=== PATIENT | male | born 1990 | race Caucasian/White ===

== ENCOUNTER 2017-11-25 15:29 | Emergency (ER) | payer MEDICAID ==
[2017-11-25 15:33] VITALS: BP 127/80
--- NOTE | 2017-11-25 16:08 | ED Physician Documentation ---
PD HPI SKIN - Stated complaint Stated Complaint: LUMP ON LT SIDE NECK & RT FINGER - Chief complaint Chief Complaint: Wound - History obtained from History obtained from: Patient - History of Present Illness Timing - onset: How many days ago (3) Timing - duration: Days (3) Timing - details: Gradual onset, Still present Location: Neck, RUE Quality / character: Itchy, Discolored, Raised Associated symptoms: No: Fever Similar symptoms before: Diagnosis (abscess) Recently seen: Not recently seen - Additional information Additional information: 27-year-old male has developed a small pimple on the side of his neck that has increased in size and is mildly painful. He also has a tiny area over the right middle finger that he feels is infected with a bacteria. He states that he has had something similar to this previously and he let it go and it involved his entire forearm. He has not had fever and he has not been otherwise ill. Review of Systems Constitutional: denies: Fever Eyes: denies: Decreased vision Ears: denies: Ear pain Nose: denies: Congestion Throat: denies: Sore throat Cardiac: denies: Chest pain / pressure, Palpitations Respiratory: denies: Dyspnea, Cough GI: denies: Nausea, Vomiting : denies: Dysuria, Frequency Skin: reports: Lesions Musculoskeletal: reports: Extremity pain. denies: Neck pain, Back pain PD PAST MEDICAL HISTORY - Past Medical History Past Medical History: Yes Psych: Bipolar disorder - Past Surgical History Past Surgical History: No - Present Medications Home Medications: Ambulatory Orders Medication Instructions Recorded Confirmed Sulfamethoxazole/Trimethoprim 1 each PO BID #14 tablet 11/25/17 [Sulfamethoxazole-Tmp Ds Tablet] - Allergies Allergies/Adverse Reactions: Allergies Allergy/AdvReac Type Severity Reaction Status Date / Time amoxicillin [Amoxicillin] Allergy Intermediate Hives Verified 11/25/17 15:33 - Social History Does the pt smoke?: Yes Smoking Status: Current every day smoker Does the pt drink ETOH?: Yes Does the pt have substance abuse?: Yes - Immunizations Immunizations are current?: Yes - POLST Patient has POLST: No PD ED PE NORMAL - Vitals Vital signs reviewed: Yes (normal ) - General General: Alert and oriented X 3, No acute distress, Well developed/nourished - HEENT HEENT: Atraumatic, PERRL, EOMI - Neck Neck: Supple, no meningeal sign, No bony TTP, Other (To the left neck there is a 5mm round raised pimple without underlying mass or fluctunace. ) - Respiratory Respiratory: No respiratory distress - Back Back: No CVA TTP, No spinal TTP - Derm Derm: Normal color, Warm and dry, No rash - Extremities Extremities: No deformity, No edema, Other (over the tip of the right middle finger is a tiny area about 4mm in size that is without inflamation or tenderness. 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) - Neuro Neuro: Alert and oriented X 3, No motor deficit, No sensory deficit, Normal speech Eye Opening: Spontaneous Motor: Obeys Commands Verbal: Oriented GCS Score: 15 - Psych Psych: Normal mood, Normal affect Results - Vitals Vitals: Vital Signs - 24 hr 11/25/17 15:31 Temperature 36.1 C L Heart Rate 79 Respiratory 16 Rate Blood Pressure 127/80 O2 Saturation 97 Oxygen O2 Source Room air PD MEDICAL DECISION MAKING - ED course Complexity details: considered differential, d/w patient ED course: 27-year-old male with an early staph infection on his neck and complaints of a infection in his fingertip appears to have a early staph infection in his neck. I am not certain what to make of the issue with his finger. It does seem like there may be some delusional parasitosis. - Sepsis Event Vital Signs: Vital Signs - 24 hr 11/25/17 15:31 Temperature 36.1 C L Heart Rate 79 Respiratory 16 Rate Blood Pressure 127/80 O2 Saturation 97 Oxygen O2 Source Room air Departure - Departure Disposition: 01 Home, Self Care Clinical Impression: Staph skin infection Condition: Stable Instructions: ED Staph Infec Abx Tx Only Follow-Up: [facility] [Provider Group] Prescriptions: Sulfamethoxazole/Trimethoprim [Sulfamethoxazole-Tmp Ds Tablet] 1 each PO BID # 14 tablet
== END 2017-11-25 16:15 | disposition home or self-care (01) ==
LOC: ED 15:29
DX: L08.89 Other specified local infections of the skin and subcutaneous tissue (principal); B95.8 Unspecified staphylococcus as the cause of diseases classified elsewhere; F17.200 Nicotine dependence, unspecified, uncomplicated
CPT/HCPCS: 99281; 99283

== ENCOUNTER 2019-09-18 16:33 | Emergency (ER) | payer MEDICAID ==
--- NOTE | 2019-09-18 17:13 | ED Physician Documentation ---
PD HPI ABD PAIN - Stated complaint Stated Complaint: ABD PAIN - Chief complaint Chief Complaint: Abd Pain - History obtained from History obtained from: Patient - History of Present Illness Timing - onset: How many months ago (10) Location: Periumbilical Worsened by: Other (bearing down, heavy lifting) Associated symptoms: No: Fever, Nausea, Vomiting, Hematemesis, Melena, Hematuria, Chest pain, Near syncope / syncope, Loss of appetite, Weight loss Recently seen: Not recently seen - Additional information Additional information: 29-year-old male presents to the emergency department with chief complaint of worsening periumbilical pain and swelling. Patient reports that about 1 year ago he not noticed a little lump in the umbilical area. He has not thought much about it but over the course of the summer as he works out more or lifts heavy objects he finds that the pain will increase in the umbilical area. Sometimes he has a mild area of swelling there. Patient has no previous past surgical history. He denies any fevers no hematuria no testicular pain no vomiting no melena or hematochezia.Pain does not radiate. Review of Systems Constitutional: denies: Fever, Chills Respiratory: denies: Dyspnea, Cough GI: reports: Abdominal Pain. denies: Abdominal Swelling, Nausea, Vomiting, Constipation, Diarrhea, Hematemesis, Bloody / black stool, Reviewed and negative : denies: Dysuria, Testicular pain, Testicular mass Skin: denies: Rash, Lesions Musculoskeletal: denies: Neck pain, Back pain PD PAST MEDICAL HISTORY - Past Medical History Past Medical History: No Psych: Bipolar disorder - Past Surgical History Past Surgical History: No - Present Medications Home Medications: Ambulatory Orders Medication Instructions Recorded Confirmed Sulfamethoxazole/Trimethoprim 1 each PO BID #14 tablet 11/25/17 [Sulfamethoxazole-Tmp Ds Tablet] - Allergies Allergies/Adverse Reactions: Allergies Allergy/AdvReac Type Severity Reaction Status Date / Time amoxicillin [Amoxicillin] Allergy Intermediate Hives Verified 09/18/19 16:45 - Social History Does the pt smoke?: Yes Smoking Status: Current every day smoker Does the pt drink ETOH?: Yes Does the pt have substance abuse?: Yes - Immunizations Immunizations are current?: Yes - POLST Patient has POLST: No PD ED PE EXPANDED - General General: No acute distress, Well developed/nourished. No: Anxious, In Pain - Cardiac Cardiac: Regular Rate - Respiratory Respiratory: Clear to ausultation ramon - Abdomen Abdomen: Normal Bowel sounds, Other (small reducible < 0.5 cm umbilican hernia palpated with bearing down) - Back Back: Normal exam - Derm Derm: Normal color, Warm and dry. No: Rash Results - Vitals Vitals: Vital Signs - 24 hr 09/18/19 09/18/19 16:41 16:45 Temperature 36.9 C Heart Rate 64 65 Respiratory 14 16 Rate Blood Pressure 148/59 H 145/65 H O2 Saturation 98 100 Oxygen O2 Source Room air - Rads (name of study) abd ultrasound Radiology: Final report received (2 small fat-containing umbilical hernias without signs of incarceration or strangulation) PD MEDICAL DECISION MAKING - ED course Complexity details: reviewed results, d/w patient ED course: 29-year-old male presented to the emergency department with chief complaint of increasing periumbilical pain. Over the last few months he has noticed an area of swelling when bearing down or lifting heavy weights. Limited abdominal ultrasound shows 2 fat-containing umbilical hernias without signs of strangulation or incarceration. Patient will be referred to [facility] surgery for follow-up. Emergent return precautions for concerns of increasing pain fevers or strangulation discussed. Departure - Departure Disposition: 01 Home, Self Care Clinical Impression: Umbilical hernia Qualifiers: Obstruction and gangrene presence: without obstruction or gangrene Qualified Code(s): K42.9 - Umbilical hernia without obstruction or gangrene Condition: Stable Record reviewed to determine appropriate education?: Yes Instructions: Hernia Surg Umbilical Repair Ch Follow-Up: Kleber Head MD [Provider Admit Priv/Credential] - Comments: Jarek you have a small fat-containing umbilical hernia. There is no intestine in the hernia. In the long-term follow-up with the surgeon is advised. Please schedule an appointment as soon as you are able. If you develop increasing pain swelling redness or have bloody stools or fevers return to the emergency department for reevaluation.
--- NOTE | 2019-09-18 19:59 | Ultrasound Report ---
Reason: eval for umbilical hernia Procedure Date: 09/18/2019 Accession Number: [id number] / [id number] Procedure: US - Abdomen Limited CPT Code: Final Report FULL RESULT: PROCEDURE: Abdomen Limited INDICATIONS: eval for umbilical hernia TECHNIQUE: Real-time focused scanning was performed of the abdomen, with image documentation. COMPARISON: None FINDINGS: There is a superior periumbilical hernia extending through a peritoneal defect measuring only approximately 4-5 mm in maximal thickness. This is a fat-containing herniation measuring 2.5 x 0.7 x 1.4 cm and at the umbilicus itself there also is a 1.7 x 0.7 x 1.7 cm fat-containing hernia. IMPRESSION: 2 fat containing hernias are present at the periumbilical soft tissues including one at the umbilicus itself and the other immediately superior. By this examination and bowel incarceration or strangulation is not seen. Reviewed by: Jose Pagan MD on 09/18/2019 7:58 PM PDT Approved by: Jose Pagan MD on 09/18/2019 7:58 PM PDT Station ID: [id number]
[2019-09-18 20:28] VITALS: BP 135/65
== END 2019-09-18 20:28 | disposition home or self-care (01) ==
LOC: ED 16:33
DX: K42.9 Umbilical hernia without obstruction or gangrene (principal); F17.200 Nicotine dependence, unspecified, uncomplicated
CPT/HCPCS: 76705; 99284

== ENCOUNTER 2019-12-03 11:50 | Outpatient (CLI) | payer MEDICAID ==
[2019-12-04 10:22] LABS: HIV AG/AB 4TH GEN NON-REACTIVE (NON-REACTIVE)
[2019-12-04 14:51] LABS: HEPATITIS C ANTIBODY REACTIVE (NON-REACTIVE)
[2019-12-05 18:56] LABS: HCV RNA QNT <1.18 NOT DETECTED Log IU/mL (NOT DETECTED); HCV RNA QUANT RT PCR <15 NOT DETECTED IU/mL (NOT DETECTED)
== END 2019-12-03 23:59 | disposition home or self-care (01) ==
LOC: LAB.WCP 11:50
PROVIDERS: ATTEND Nurse Practitioner Family
DX: Z11.3 Encounter for screening for infections with a predominantly sexual mode of transmission (principal)
CPT/HCPCS: 36415; 81599; 86592; 86803; 87389; 87491; 87591; 87661

== ENCOUNTER 2019-12-11 16:17 | Emergency (ER) | payer MEDICAID ==
[2019-12-11 16:28] VITALS: BP 129/82
--- NOTE | 2019-12-11 16:29 | ED Physician Documentation ---
History of Present Illness - Stated complaint Stated Complaint: ARMPIT LUMP - Chief complaint Chief Complaint: General - History obtained from History obtained from: Patient - Additonal information Additional information: There is a small lesion he noticed in his left armpit today. It is painless. Review of Systems Constitutional: reports: Reviewed and negative Eyes: reports: Reviewed and negative Ears: reports: Reviewed and negative PD PAST MEDICAL HISTORY - Past Medical History Psych: Bipolar disorder - Past Surgical History Past Surgical History: No - Present Medications Home Medications: Ambulatory Orders Medication Instructions Recorded Confirmed Sulfamethoxazole/Trimethoprim 1 each PO BID #14 tablet 11/25/17 [Sulfamethoxazole-Tmp Ds Tablet] - Allergies Allergies/Adverse Reactions: Allergies Allergy/AdvReac Type Severity Reaction Status Date / Time amoxicillin [Amoxicillin] Allergy Intermediate Hives Verified 09/18/19 16:45 - Social History Does the pt smoke?: Yes Smoking Status: Current every day smoker Does the pt drink ETOH?: Yes Does the pt have substance abuse?: Yes - Immunizations Immunizations are current?: Yes - POLST Patient has POLST: No PD ED PE NORMAL - Vitals Vital signs reviewed: Yes - General General: Alert and oriented X 3 - Derm Derm: Other (He has a skin tag measuring less than a millimeter in his left axilla which is the source of his worry. He was reassured.) - Neuro Neuro: Alert and oriented X 3, Normal speech Results - Vitals Vitals: Vital Signs - 24 hr 12/11/19 16:22 Temperature 36.0 C L Heart Rate 89 Respiratory 16 Rate Blood Pressure 129/82 H O2 Saturation 969 H Oxygen O2 Source Room air Departure - Departure Disposition: 01 Home, Self Care Clinical Impression: Cutaneous skin tags Condition: Good Record reviewed to determine appropriate education?: Yes Comments: What she have there is called a skin tag. Completely benign and you can safely ignore it. If it is really bothering you you can talk to your doctor about snipping it off.
== END 2019-12-11 16:33 | disposition home or self-care (01) ==
LOC: ED 16:17
DX: L91.8 Other hypertrophic disorders of the skin (principal); F17.200 Nicotine dependence, unspecified, uncomplicated
CPT/HCPCS: 99281

== ENCOUNTER 2020-01-23 14:05 | Emergency (ER) | payer MEDICAID ==
[2020-01-23 14:11] VITALS: BP 140/91
[2020-01-23] MEDS ORDERED: SODIUM CHLORIDE 0.9% 1,000 ML IV STA (14:24)
--- NOTE | 2020-01-23 14:37 | ED Physician Documentation ---
History of Present Illness - Stated complaint Stated Complaint: ABD PX, NAUSEA - Chief complaint Chief Complaint: Abd Pain - Additonal information Additional information: 30-year-old male presents to the emergency department for evaluation of lower abdominal pain. He reports that when he woke up this morning he had a generalized dull ache in his lower pelvic area. Since this a.m. the pain has been pretty constant. He reports that he has been nauseated and has vomited once. He does have a history of fat-containing periumbilical hernias. He has been seen by surgery for this but is delayed scheduling surgery due to work commitments. However he reports that this pain is distinctly different than the pain he has had with the periumbilical hernias. He denies dysuria but states that his urine is cloudy. He denies penile discharge, testicular pain or swelling. He denies diarrhea or any pertinent past surgical history. Occasionally smokes tobacco but denies cannabis. he is a social drinker. he has a hx of psoriasis; unmedicated. Pt takes no rx medications Review of Systems Constitutional: denies: Fever, Chills Eyes: reports: Reviewed and negative Nose: reports: Reviewed and negative Throat: reports: Reviewed and negative Cardiac: reports: Reviewed and negative Respiratory: reports: Reviewed and negative GI: reports: Abdominal Pain, Nausea, Vomiting. denies: Constipation, Diarrhea, Hematemesis, Bloody / black stool : denies: Dysuria, Frequency, Hesitancy, Discharge, Testicular pain, Testicular mass Skin: reports: Reviewed and negative Musculoskeletal: reports: Reviewed and negative Neurologic: reports: Reviewed and negative PD PAST MEDICAL HISTORY - Past Medical History Cardiovascular: None Respiratory: None Neuro: None Endocrine/Autoimmune: None GI: None : None HEENT: None Psych: Bipolar disorder Musculoskeletal: None Derm: None - Past Surgical History Past Surgical History: No - Present Medications Home Medications: Ambulatory Orders Medication Instructions Recorded Confirmed Sulfamethoxazole/Trimethoprim 1 each PO BID #14 tablet 11/25/17 [Sulfamethoxazole-Tmp Ds Tablet] - Allergies Allergies/Adverse Reactions: Allergies Allergy/AdvReac Type Severity Reaction Status Date / Time amoxicillin [Amoxicillin] Allergy Intermediate Hives Verified 01/23/20 14:11 - Social History Does the pt smoke?: Yes Smoking Status: Current every day smoker Does the pt drink ETOH?: Yes Does the pt have substance abuse?: Yes - Immunizations Immunizations are current?: Yes - POLST Patient has POLST: No PD ED PE EXPANDED - General General: Alert, Anxious - Neck Neck: Supple w/out meningeal sx. No: Adenopathy - Cardiac Cardiac: Regular Rate, Regular Rhythm, Radial strong equal, Cap refill < 2 sec - Respiratory Respiratory: Clear to ausultation ramon. No: Distress, Labored - Abdomen Abdomen: Normal Bowel sounds, Tender to palpation, LLQ (Mild tenderness left lower quadrant of abdomen without rebound or guarding. Negative psoas and McBurney's.). No: Rebound, Guarding, Periumbilical (No periumbilical pain elicited. Unable to palpate to the previously documented umbilical hernias) - Derm Derm: Normal color, Warm and dry, Rash (psoriatic rash on elbows, knees) - Extremities Extremities: Normal - Neuro Neuro: Alert and Oriented X 3, CNII-XII intact - GCS Eye Opening: Spontaneous Motor: Obeys Commands Verbal: Oriented Total: 15 Results - Vitals Vitals: Vital Signs - 24 hr 01/23/20 14:08 Temperature 36.3 C L Heart Rate 60 Respiratory 17 Rate Blood Pressure 140/91 H O2 Saturation 99 Oxygen O2 Source Room air - Labs Labs: Laboratory Tests 01/23/20 01/23/20 01/23/20 14:33 14:42 14:42 WBC 9.8 RBC 5.39 Hgb 16.3 Hct 47.2 MCV 87.6 MCH 30.2 MCHC 34.5 RDW 12.0 Plt Count 292 MPV 9.7 Neut # (Auto) 7.4 H Lymph # (Auto) 1.4 L [place] # (Auto) 0.8 Eos # (Auto) 0.1 Baso # (Auto) 0.0 Absolute Nucleated RBC 0.00 Nucleated RBC % 0.0 Sodium 137 Potassium 3.9 Chloride 102 Carbon Dioxide 27 Anion Gap 8.0 BUN 14 Creatinine 0.8 Estimated GFR (MDRD) 114 Glucose 105 H Calcium 9.2 Total Bilirubin 1.1 H AST 23 ALT 24 Alkaline Phosphatase 46 Total Protein 6.9 Albumin 4.2 Globulin 2.7 Albumin/Globulin Ratio 1.6 Lipase 30 Urine Color YELLOW Urine Clarity CLEAR Urine pH 8.5 H Ur Specific [place] 1.020 Urine Protein NEGATIVE Urine Glucose (UA) NEGATIVE Urine Ketones NEGATIVE Urine Occult Blood NEGATIVE Urine Nitrite NEGATIVE Urine Bilirubin NEGATIVE Urine Urobilinogen 0.2 (NORMAL) Ur Leukocyte Esterase NEGATIVE Ur Microscopic Review NOT INDICATED Urine Culture Comments NOT INDICATED - Rads (name of study) CT abd Radiology: Final report received (No acute findings to explain abdominal pain) PD MEDICAL DECISION MAKING - ED course Complexity details: reviewed old records, reviewed results, re-evaluated patient, considered differential, d/w patient ED course: 30-year-old male presents to the emergency department for evaluation of acute onset left lower quadrant abdominal pain. His lab work is essentially unremarkable without leukocytosis. Though he reported cloudy urine his urine showed no signs of infection. CT scan of the abdomen did not reveal any acute abnormality specifically no appendicitis. Patient was reevaluated and found to be free of abdominal pain. He was requesting a soda and something to drink. Patient will be discharged home advised to slowly advance his diet. Return precautions discussed Departure - Departure Disposition: 01 Home, Self Care Clinical Impression: Abdominal pain Qualifiers: Abdominal location: left lower quadrant Qualified Code(s): R10.32 - Left lower quadrant pain Condition: Stable Record reviewed to determine appropriate education?: Yes Instructions: Abdominal Pain Comments: Jarek the CT scan of your abdomen was essentially normal. Your labs today in the emergency department are also normal. Recommend that you go home drink sips of clear fluids and slowly advance your diet if you begin to feel better. If you develop a fever of suddenly severe abdominal pain you are unable to keep food or liquid down for 48 hours or more than please return to the emergency department
[2020-01-23 14:41] LABS: BILIRUBIN,URINE NEGATIVE (NEGATIVE); GLUCOSE, URINE (UA) NEGATIVE (NEGATIVE); KETONES,URINE (UA) NEGATIVE (NEGATIVE); LEUKOCYTE ESTERASE, URINE NEGATIVE (NEGATIVE); NITRITE,URINE NEGATIVE (NEGATIVE); OCCULT BLOOD,URINE NEGATIVE (NEGATIVE); PH,URINE 8.5 PH (5.0-7.5); PROTEIN,URINE NEGATIVE (NEGATIVE); UROBILINOGEN,URINE 0.2 (NORMAL) E.U./dL (NORMAL)
[2020-01-23 14:43] LABS: CLARITY,URINE CLEAR (CLEAR)
[2020-01-23 14:55] LABS: BASOPHILS % (AUTO) 0.4 %; EOSINOPHILS # (AUTO) 0.1 10^3/uL (0.0-0.7); EOSINOPHILS % (AUTO) 1.3 %; HGB - HEMOGLOBIN 16.3 g/dL (14.0-18.0); LYMPHOCYTES # (AUTO) 1.4 10^3/uL (1.5-3.5); LYMPHOCYTES % (AUTO) 14.6 %; MEAN CORPUSCULAR HEMOGLOBIN 30.2 pg (27.0-31.0); MEAN CORPUSCULAR HGB CONC 34.5 g/dL (32.0-36.0); MEAN CORPUSCULAR VOLUME 87.6 fL (80.0-94.0); MEAN PLATELET VOLUME 9.7 fL (7.4-11.4); MONOCYTES # (AUTO) 0.8 10^3/uL (0.0-1.0); MONOCYTES % (AUTO) 7.8 %; NEUTROPHILS # (AUTO) 7.4 10^3/uL (1.5-6.6); NEUTROPHILS % (AUTO) 75.5 %; PLT - PLATELET COUNT 292 10^3/uL (130-450); RED BLOOD COUNT 5.39 10^6/uL (4.70-6.10); WHITE BLOOD COUNT 9.8 x10^3/uL (4.8-10.8)
[2020-01-23] MEDS ORDERED: IOVERSOL 320 100 ML VIAL IVP ONE ×2 (15:04→17:08)
[2020-01-23 15:15] LABS: ALBUMIN 4.2 g/dL (3.2-5.5); ALBUMIN/GLOBULIN RATIO 1.6 (1.0-2.2); BILIRUBIN,TOTAL 1.1 mg/dL (0.2-1.0); CALCIUM 9.2 mg/dL (8.5-10.3); CREATININE 0.8 mg/dL (0.6-1.2); TOTAL PROTEIN 6.9 g/dL (6.7-8.2)
--- NOTE | 2020-01-23 15:53 | CT Report ---
PROCEDURE: Abdomen/Pelvis W INDICATIONS: RLQ Abdominal pain, appendicitis suspected CONTRAST: IV CONTRAST: Optiray 320 ml: 100 PO CONTRAST: *NO PO CONTRAST TECHNIQUE: After the administration of weight appropriate dose of intravenous contrast contrast, 5 mm thick sect ions acquired from the diaphragms to the symphysis. 5 mm thick coronal and sagittal reformats were a cquired. For radiation dose reduction, the following was used: automated exposure control, adjustme nt of mA and/or kV according to patient size. COMPARISON: None. FINDINGS: Image quality: Excellent. ABDOMEN: Lung bases: Lung bases are clear. Heart size is normal. Solid organs: Liver and spleen are normal in size and enhancement. Gallbladder is unremarkable. Bi liary system is non dilated. Pancreas enhances normally. No adrenal nodules. Kidneys demonstrate n ormal size and enhancement, without hydronephrosis. Peritoneum and bowel: Bowel loops demonstrate normal wall thickness and caliber. No free fluid or a ir. Visualized air-filled appendix is normal in appearance. Nodes and vessels: No retroperitoneal or mesenteric adenopathy by size criteria. Aorta and inferior vena cava are normal in size. Miscellaneous: No ventral hernias. PELVIS: Genitourinary: Bladder wall thickness is normal. Miscellaneous: No inguinal hernias or adenopathy. Bones: No suspicious bony lesions. No vertebral body compression fractures. IMPRESSION: CT abdomen and pelvis without acute abnormalities. Specifically, normal appearing appendix. Reviewed by: Toño Park MD on 01/23/2020 3:52 PM PDT Approved by: Toño Park MD on 01/23/2020 3:52 PM PDT Station ID: [id number]
== END 2020-01-23 16:34 | disposition home or self-care (01) ==
LOC: ED 14:05
DX: R10.32 Left lower quadrant pain (principal); Z72.0 Tobacco use; Z87.19 Personal history of other diseases of the digestive system
CPT/HCPCS: 36415; 74177; 80053; 81003; 83690; 85025; 96360; 96361; 99282; 99284; Q9967; 81001; 87086

== ENCOUNTER 2020-04-24 09:42 | Outpatient (CLI) | payer MEDICAID ==
[2020-04-28 13:12] LABS: HSV 1 IGG TYPE SPECIFIC AB <0.90 index
== END 2020-04-24 23:59 | disposition home or self-care (01) ==
LOC: LAB.WCP 09:42
PROVIDERS: ATTEND Nurse Practitioner Family
DX: Z11.3 Encounter for screening for infections with a predominantly sexual mode of transmission (principal)
CPT/HCPCS: 36415; 81599; 86695; 86696

== ENCOUNTER 2020-07-26 08:48 | Emergency (ER) | payer MEDICAID ==
[2020-07-26 10:41] LABS: B. PARAPERTUSSIS- RESP PCR PAN NOT DETECTED; B. PERTUSSIS- RESP PCR PANEL NOT DETECTED; C. PNEUMONIAE- RESP PCR PANEL NOT DETECTED; CORONAVIRUS 229E-RESP PCR NOT DETECTED; CORONAVIRUS HKU1-RESP PCR NOT DETECTED; CORONAVIRUS NL63-RESP PCR NOT DETECTED; CORONAVIRUS OC43-RESP PCR NOT DETECTED; HUMAN METAPNEUMOVIRUS NOT DETECTED; INFLUENZA A- RESP PCR PANEL NOT DETECTED; INFLUENZA B - RESP PCR PANEL NOT DETECTED; M. PNEUMONIAE- RESP PCR PANEL NOT DETECTED; PARAINFLUENZA VIRUS 1 NOT DETECTED; PARAINFLUENZA VIRUS 2 NOT DETECTED; PARAINFLUENZA VIRUS 3 NOT DETECTED; PARAINFLUENZA VIRUS 4 NOT DETECTED; RHINOVIRUS/ENTEROVIRUS NOT DETECTED; RSV- RESP PCR PANEL NOT DETECTED; SARS-CoV-2 -RESP PCR PANEL NOT DETECTED
--- NOTE | 2020-07-26 10:52 | ED Physician Documentation ---
PD HPI URI - Stated complaint Stated Complaint: SOA/DIZZINESS - Chief complaint Chief Complaint: Resp - History obtained from History obtained from: Patient - History of Present Illness Timing - onset: How many days ago (3) Timing duration: Days (3) Timing details: Gradual onset, Still present Associated symptoms: Sore throat, Dry cough Contributing factors: Sick contact (Exposed to a friend who he suspects had Covid.) Improves by: Rest Similar symptoms before: Has not had sx before Recently seen: Not recently seen - Additional information Additional information: Previously well 30-year-old male has developed some symptoms of achiness that have come and gone and he has a dry cough. He has been exposed to a friend who he thinks may have had Covid. The patient has become unduly concerned and is wanting to be tested. He has not had his shot. Review of Systems Constitutional: reports: Myalgias, Fatigue. denies: Fever Eyes: denies: Decreased vision Ears: denies: Ear pain Nose: reports: Congestion. denies: Rhinorrhea / runny nose Throat: reports: Sore throat Cardiac: denies: Chest pain / pressure, Palpitations Respiratory: reports: Cough. denies: Dyspnea, Wheezing GI: denies: Abdominal Pain, Nausea, Vomiting : denies: Dysuria, Frequency PD PAST MEDICAL HISTORY - Past Medical History Cardiovascular: None Respiratory: None Neuro: None Endocrine/Autoimmune: None GI: None : None HEENT: None Psych: Bipolar disorder Musculoskeletal: None Derm: None - Past Surgical History Past Surgical History: No - Present Medications Home Medications: Ambulatory Orders Medication Instructions Recorded Confirmed No Known Home Medications 07/26/20 07/26/20 - Allergies Allergies/Adverse Reactions: Allergies Allergy/AdvReac Type Severity Reaction Status Date / Time amoxicillin [Amoxicillin] Allergy Intermediate Hives Verified 01/23/20 14:11 - Social History Does the pt smoke?: Yes Smoking Status: Current every day smoker Does the pt drink ETOH?: Yes Does the pt have substance abuse?: Yes - Immunizations Immunizations are current?: Yes - POLST Patient has POLST: No PD ED PE NORMAL - Vitals Vital signs reviewed: Yes (hypertensive mild) - General General: Alert and oriented X 3, No acute distress, Well developed/nourished - HEENT HEENT: Atraumatic, PERRL, EOMI, Ears normal, Moist mucous membranes, Pharynx benign, Dentition benign - Neck Neck: Supple, no meningeal sign, No bony TTP - Cardiac Cardiac: RRR, No murmur - Respiratory Respiratory: No respiratory distress, Clear bilaterally - Abdomen Abdomen: Soft, Non tender - Back Back: No CVA TTP, No spinal TTP - Derm Derm: Normal color, Warm and dry, No rash - Extremities Extremities: No deformity, No edema - Neuro Neuro: Alert and oriented X 3, manager product management 2-12 intact, No motor deficit, No sensory deficit, Normal speech Eye Opening: Spontaneous Motor: Obeys Commands Verbal: Oriented GCS Score: 15 - Psych Psych: Normal mood, Normal affect Results - Vitals Vitals: Vital Signs - 24 hr 07/26/20 08:54 Temperature 36.6 C Heart Rate 70 Respiratory 18 Rate Blood Pressure 127/84 H O2 Saturation 97 Oxygen O2 Source Room air - Labs Labs: Laboratory Tests 07/26/20 09:35 Nasal Adenovirus (PCR) NOT DETECTED Nasal B. parapertussis DNA (PCR) NOT DETECTED Nasal Coronavir 229E PCR NOT DETECTED Nasal Coronavir HKU1 PCR NOT DETECTED Nasal Coronavir NL63 PCR NOT DETECTED Nasal Coronavir OC43 PCR NOT DETECTED Nasal Enterovir/Rhinovir PCR NOT DETECTED Nasal Influenza B PCR NOT DETECTED Nasal Influenza A PCR NOT DETECTED Nasal Parainfluen 1 PCR NOT DETECTED Nasal Parainfluen 2 PCR NOT DETECTED Nasal Parainfluen 3 PCR NOT DETECTED Nasal Parainfluen 4 PCR NOT DETECTED Nasal RSV (PCR) NOT DETECTED Nasal B.pertussis DNA PCR NOT DETECTED Nasal C.pneumoniae (PCR) NOT DETECTED Cooper Human Metapneumo PCR NOT DETECTED Nasal M.pneumoniae (PCR) NOT DETECTED Nasal SARS-CoV-2 (PCR) NOT DETECTED PD MEDICAL DECISION MAKING - ED course Complexity details: reviewed results, re-evaluated patient, considered differential, d/w patient ED course: Previously well 30-year-old male has become concerned about the possibility of Covid and he presents to the emergency department today with a dry cough and aches. His rapid Covid is negative. Prior to my seeing the patient my assumption was that he had been exposed to Covid and by more detailed history his friend had pneumonia and the patient was suspecting Covid is a possibility. Departure - Departure Disposition: 01 Home, Self Care Clinical Impression: URI (upper respiratory infection) Qualifiers: URI type: unspecified URI Qualified Code(s): J06.9 - Acute upper respiratory infection, unspecified Condition: Stable Instructions: ED Viral Syndrome Follow-Up: [facility] [Provider Group]
[2020-07-26 11:01] VITALS: BP 142/90
== END 2020-07-26 10:59 | disposition home or self-care (01) ==
LOC: ED 08:48
DX: J06.9 Acute upper respiratory infection, unspecified (principal); Z20.822 Contact with and (suspected) exposure to COVID-19; F17.200 Nicotine dependence, unspecified, uncomplicated
CPT/HCPCS: 0202U; 99283

== ENCOUNTER 2020-08-16 23:03 | Emergency (ER) | payer MEDICAID ==
[2020-08-16 23:16] VITALS: BP 131/77
--- NOTE | 2020-08-17 00:38 | ED Physician Documentation ---
History of Present Illness - Stated complaint Stated Complaint: MALE - Chief complaint Chief Complaint: General - History obtained from History obtained from: Patient - Additonal information Additional information: Patient comes emergency department for chief complaint of "lump in right groin". Patient states he is noticed a "hard ball" under the skin of his right inguinal area, and is not sure if it is a lymph node or something else. He states he has a history of genital herpes, though he has never had an actual outbreak. He has noticed 2 small red bumps near the right base of his penis. No fevers or chills. No urethral discharge. No dysuria. No other complaints at this time. Review of Systems Ten Systems: 10 systems reviewed and negative Constitutional: reports: Reviewed and negative Eyes: reports: Reviewed and negative Ears: reports: Reviewed and negative Nose: reports: Reviewed and negative Throat: reports: Reviewed and negative Cardiac: reports: Reviewed and negative Respiratory: reports: Reviewed and negative GI: reports: Reviewed and negative : reports: Other (Genital lesions.) Skin: reports: Reviewed and negative Musculoskeletal: reports: Reviewed and negative Neurologic: reports: Reviewed and negative Psychiatric: reports: Reviewed and negative Endocrine: reports: Reviewed and negative Immunocompromised: reports: Reviewed and negative PD PAST MEDICAL HISTORY - Past Medical History Past Medical History: Yes Cardiovascular: None Respiratory: None Neuro: None Endocrine/Autoimmune: None GI: None : None HEENT: None Psych: Bipolar disorder Musculoskeletal: None Derm: None - Past Surgical History Past Surgical History: No - Present Medications Home Medications: Ambulatory Orders Medication Instructions Recorded Confirmed No Known Home Medications 07/26/20 08/16/20 - Allergies Allergies/Adverse Reactions: Allergies Allergy/AdvReac Type Severity Reaction Status Date / Time amoxicillin [Amoxicillin] Allergy Intermediate Hives Verified 08/16/20 23:15 - Social History Does the pt smoke?: Yes Smoking Status: Current every day smoker Does the pt drink ETOH?: Yes Does the pt have substance abuse?: Yes - Immunizations Immunizations are current?: Yes - POLST Patient has POLST: No PD ED PE NORMAL - Vitals Vital signs reviewed: Yes - General General: Alert and oriented X 3, No acute distress - HEENT HEENT: Atraumatic, PERRL, EOMI, Moist mucous membranes - Neck Neck: Supple, no meningeal sign - Respiratory Respiratory: No respiratory distress - Male Male : Other (Normal male genitalia. 2 small papules noted at the base of penis on right. Appear to be associated with hair follicle. No apical erosion or drainage. No vesicles. Shotty lymph node is palpable in the inguinal area on right.) - Derm Derm: Normal color, Warm and dry, No rash - Extremities Extremities: No deformity - Neuro Neuro: Alert and oriented X 3 - Psych Psych: Normal mood, Normal affect Results - Vitals Vitals: Vital Signs - 24 hr 08/16/20 23:12 Temperature 36.9 C Heart Rate 77 Respiratory 16 Rate Blood Pressure 131/77 H O2 Saturation 97 Oxygen O2 Source Room air PD MEDICAL DECISION MAKING - ED course Complexity details: considered differential, d/w patient ED course: I discussed with the patient that I do not at this time seen evidence of a herpes outbreak. I have discussed with him that it is very common to have enlarged or shoddy lymph nodes in the inguinal area. The 2 papules do not appear to be distinctly herpetic in nature, and I have advised the patient that at this point, he should just keep an eye on the lesions. If they become ulcerated or vesicular, then the patient should seek medical attention for treatment of herpes outbreak. Patient stable for discharge home at this time. Departure - Departure Disposition: 01 Home, Self Care Clinical Impression: Inguinal lymphadenopathy Condition: Stable Instructions: Lymphadenopathy, ED Herpes Simplex Virus Type 2 Comments: The "bump" that you have been feeling in your groin is a swollen lymph node. This is a very common area for you to have swollen lymph nodes, and they can be swollen just from reacting to the normal bacteria in the pelvic area. Right now, you are not having a clear-cut herpes outbreak. The red bumps that you have noticed near the base of your penis could just be irritated hair follicles. However, if they become more numerous and more painful, and especially if they become open sores, you should be rechecked and started on antiviral medication for herpes outbreak. Discharge Date/Time: 08/17/20 00:48
== END 2020-08-17 00:48 | disposition home or self-care (01) ==
LOC: ED 23:03
DX: F17.200 Nicotine dependence, unspecified, uncomplicated (principal); R59.0 Localized enlarged lymph nodes
CPT/HCPCS: 99281

== ENCOUNTER 2020-10-23 21:39 | Emergency (ER) | payer MEDICAID ==
[2020-10-23] MEDS ORDERED: DEXAMETHASONE 10 MG/ML VIAL PO STA (22:17)
[2020-10-23] MEDS ORDERED: CHERRY SYRUP 10 ML UDC PO ONE (22:17)
--- NOTE | 2020-10-23 22:20 | ED Physician Documentation ---
PD HPI HEENT - Stated complaint Stated Complaint: FLU LIKE SX - Chief complaint Chief Complaint: Heent - History obtained from History obtained from: Patient - History of Present Illness Timing - onset: Yesterday Timing - duration: Days (1) Timing - details: Gradual onset, Still present Location: Nose, Throat Improves: Medication Worsens: Swalllowing Associated symptoms: Congestion, Rhinorrhea, Cough. No: Fever Similar symptoms before: Has not had sx before Recently seen: Not recently seen - Additional information Additional information: Previously well 30-year-old male has developed a cough congestion and sore throat beginning yesterday. He was asked by his employer to come into the emergency department for evaluation as the patient was calling off work. He recommended a Covid test. The patient has been immunized against Covid last month. Review of Systems Constitutional: denies: Fever, Chills Eyes: denies: Decreased vision Ears: denies: Ear pain Nose: reports: Rhinorrhea / runny nose, Congestion Throat: reports: Sore throat Cardiac: denies: Chest pain / pressure Respiratory: reports: Cough. denies: Dyspnea GI: denies: Vomiting, Diarrhea : denies: Dysuria Skin: denies: Rash Musculoskeletal: denies: Neck pain, Back pain, Extremity pain Neurologic: denies: Generalized weakness, Focal weakness, Numbness PD PAST MEDICAL HISTORY - Past Medical History Past Medical History: No Cardiovascular: None Respiratory: None Neuro: None Endocrine/Autoimmune: None GI: None : None HEENT: None Psych: Bipolar disorder Musculoskeletal: None Derm: None - Past Surgical History Past Surgical History: No - Present Medications Home Medications: Ambulatory Orders Medication Instructions Recorded Confirmed Azithromycin [Zithromax] 250 mg PO DAILY #4 tablet 10/23/20 - Allergies Allergies/Adverse Reactions: Allergies Allergy/AdvReac Type Severity Reaction Status Date / Time amoxicillin [Amoxicillin] Allergy Intermediate Hives Verified 10/23/20 21:46 - Social History Does the pt smoke?: No Smoking Status: Former smoker Does the pt drink ETOH?: Yes Does the pt have substance abuse?: No - Immunizations Immunizations are current?: Yes - POLST Patient has POLST: No PD ED PE NORMAL - Vitals Vital signs reviewed: Yes (hypertensive ) - General General: Alert and oriented X 3, No acute distress, Well developed/nourished - HEENT HEENT: Atraumatic, PERRL, EOMI, Other (Right TM is markedly inflamed with distortion of the landmarks left TM is inflamed in the attic only with retention of landmarks the pharynx is with mild erythema especially to the right.) - Neck Neck: Supple, no meningeal sign, No bony TTP - Cardiac Cardiac: RRR, No murmur - Respiratory Respiratory: No respiratory distress, Clear bilaterally - Abdomen Abdomen: Soft, Non tender - Back Back: No CVA TTP, No spinal TTP - Derm Derm: Normal color, Warm and dry, No rash - Extremities Extremities: No deformity, No edema - Neuro Neuro: Alert and oriented X 3, financial services education consultant 2-12 intact, No motor deficit, No sensory deficit, Normal speech Eye Opening: Spontaneous Motor: Obeys Commands Verbal: Oriented GCS Score: 15 - Psych Psych: Normal mood, Normal affect Results - Vitals Vitals: Vital Signs - 24 hr 10/23/20 10/23/20 21:44 23:50 Temperature 36.9 C 37.1 C Heart Rate 70 88 Respiratory 16 16 Rate Blood Pressure 151/94 H 138/86 H O2 Saturation 97 98 Oxygen O2 Source Room air - Labs Labs: Laboratory Tests 10/23/20 10/23/20 22:39 22:39 Nasal Adenovirus (PCR) NOT DETECTED Nasal B. parapertussis DNA (PCR) NOT DETECTED Nasal Coronavir 229E PCR NOT DETECTED Nasal Coronavir HKU1 PCR NOT DETECTED Nasal Coronavir NL63 PCR NOT DETECTED Nasal Coronavir OC43 PCR NOT DETECTED Nasal Enterovir/Rhinovir PCR DETECTED A Nasal Influenza B PCR NOT DETECTED Nasal Influenza A PCR NOT DETECTED Nasal Parainfluen 1 PCR NOT DETECTED Nasal Parainfluen 2 PCR NOT DETECTED Nasal Parainfluen 3 PCR NOT DETECTED Nasal Parainfluen 4 PCR NOT DETECTED Nasal RSV (PCR) NOT DETECTED Nasal B.pertussis DNA PCR NOT DETECTED Nasal C.pneumoniae (PCR) NOT DETECTED Cooper Human Metapneumo PCR NOT DETECTED Nasal M.pneumoniae (PCR) NOT DETECTED Nasal SARS-CoV-2 (PCR) NOT DETECTED Group A Strep Rapid Negative PD MEDICAL DECISION MAKING - ED course Complexity details: reviewed results, re-evaluated patient, considered differential, d/w patient ED course: 30-year-old male presents with congestion and cough consistent with a cold and he is found to have rhinovirus on PCR. In addition on physical examination he does have otitis on the right much worse than the left and he is treated for this. He is administered dexamethasone orally and he is allergic to amoxicillin so he is administered a azithromycin. He is given a note for work for 2 days. Departure - Departure Disposition: 01 Home, Self Care Clinical Impression: Rhinovirus infection Otitis media Qualifiers: Otitis media type: suppurative Chronicity: acute Laterality: right Recurrence: non-recurrent Spontaneous tympanic membrane rupture: without spontaneous rupture Qualified Code(s): H66.001 - Acute suppurative otitis media without spontaneous rupture of ear drum, right ear Condition: Stable Instructions: Cold Virus, ED Otitis Media Acute Adult Follow-Up: [facility] [Provider Group] Prescriptions: Azithromycin [Zithromax] 250 mg PO DAILY #4 tablet Forms: Activity restrictions Discharge Date/Time: 10/23/20 23:51
[2020-10-23 22:52] LABS: RAPID STREP SCREEN Negative (Negative)
[2020-10-23] MEDS ORDERED: AZITHROMYCIN 250 MG TABLET PO STA (22:56)
[2020-10-23 23:34] LABS: B. PARAPERTUSSIS- RESP PCR PAN NOT DETECTED; B. PERTUSSIS- RESP PCR PANEL NOT DETECTED; C. PNEUMONIAE- RESP PCR PANEL NOT DETECTED; CORONAVIRUS 229E-RESP PCR NOT DETECTED; CORONAVIRUS HKU1-RESP PCR NOT DETECTED; CORONAVIRUS NL63-RESP PCR NOT DETECTED; CORONAVIRUS OC43-RESP PCR NOT DETECTED; HUMAN METAPNEUMOVIRUS NOT DETECTED; INFLUENZA A- RESP PCR PANEL NOT DETECTED; INFLUENZA B - RESP PCR PANEL NOT DETECTED; M. PNEUMONIAE- RESP PCR PANEL NOT DETECTED; PARAINFLUENZA VIRUS 1 NOT DETECTED; PARAINFLUENZA VIRUS 2 NOT DETECTED; PARAINFLUENZA VIRUS 3 NOT DETECTED; PARAINFLUENZA VIRUS 4 NOT DETECTED; RHINOVIRUS/ENTEROVIRUS DETECTED; RSV- RESP PCR PANEL NOT DETECTED; SARS-CoV-2 -RESP PCR PANEL NOT DETECTED
[2020-10-23 23:52] VITALS: BP 138/86
== END 2020-10-23 23:51 | disposition home or self-care (01) ==
LOC: ED 21:39
DX: B34.8 Other viral infections of unspecified site (principal); H66.001 Acute suppurative otitis media without spontaneous rupture of ear drum, right ear; Z87.891 Personal history of nicotine dependence; Z20.822 Contact with and (suspected) exposure to COVID-19
CPT/HCPCS: 0202U; 87070; 87430; 99283; 99284; A9270

== ENCOUNTER 2023-10-24 19:23 | Outpatient (CLI) | payer MEDICAID ==
--- NOTE | 2023-10-25 16:47 | Ultrasound Report ---
PROCEDURE: Abdomen Limited INDICATIONS: Umbilical hernia repair in 2022. The suture was pulled on and now bulging and pressure sensation. TECHNIQUE: Limited ultrasound the area of interest of anterior abdominal wall was performed COMPARISONS: None. FINDINGS/IMPRESSION: Limited ultrasound of the area of concern shows a cystic/hypoechoic focus measuring 1.1 x 0.7 cm with vascular flow. A mobile linear structure within the cystic structure is noted. This could represent a surgical clip, stitch / thread. Reviewed by: Brian Cummins MD on 10/25/2023 4:46 PM PDT Approved by: Brian Cummins MD on 10/25/2023 4:46 PM PDT Station ID: [id number]
== END 2023-10-24 19:24 | disposition home or self-care (01) ==
LOC: DI 19:23
PROVIDERS: ATTEND Family Medicine
DX: K43.9 Ventral hernia without obstruction or gangrene (principal); R93.5 Abnormal findings on diagnostic imaging of other abdominal regions, including retroperitoneum

== ENCOUNTER 2023-12-06 08:26 | Emergency (ER) | payer MEDICAID ==
--- NOTE | 2023-12-06 08:40 | ED Physician Documentation ---
PD HPI WOUND RECHECK - Stated complaint Stated Complaint: ABD SWELLING POST SURGERY - Chief complaint Chief Complaint: Wound - Histroy obtained from History obtained from: Patient - History of Present Illness Location: Abdomen (umbilical area) Timing - onset: How many weeks ago (several) Associated symptoms: Redness, Swelling, Drainage (mild weeping in past few days, with increased redness and tender just recent.), Pain (tender to touch) Similar symptoms before: Has not had sx before (had umbilical hernia repair without problems about a year ago. Now with focal swelling in area the past several weeks.) Recently seen: Clinic (seen at surgery clinic a month ago for swelling and some tender in the area. No redness. Had outpt US showing fluid collection 1.2 cm with some vascularity. Pt states surgeon suggested leaving it if not bothersome.) Review of Systems Constitutional: denies: Fever, Chills PD PAST MEDICAL HISTORY - Past Medical History Past Medical History: Yes Cardiovascular: Hypertension Respiratory: None Neuro: None Endocrine/Autoimmune: None GI: Other : None HEENT: None Psych: Bipolar disorder Musculoskeletal: None Derm: None - Past Surgical History Past Surgical History: Yes - Present Medications Home Medications: Ambulatory Orders Medication Instructions Recorded Confirmed Adalimumab [Humira(Cf) Pen] 40 units SUBQ Q14D 12/06/23 12/06/23 Doxycycline Hyclate 100 mg PO BID 7 Days #14 cap 12/06/23 Ibuprofen [Motrin] 600 mg PO TID PRN #25 tab 12/06/23 Mupirocin 2% Oint [Bactroban 2% 1 applic TOP TID #15 gm 12/06/23 Oint] - Allergies Allergies/Adverse Reactions: Allergies Allergy/AdvReac Type Severity Reaction Status Date / Time amoxicillin [Amoxicillin] Allergy Intermediate Hives Verified 12/06/23 08:31 - Social History Does the pt smoke?: No Smoking Status: Never smoker Does the pt drink ETOH?: Yes Does the pt have substance abuse?: No - Immunizations Immunizations are current?: Yes - POLST Patient has POLST: No PD ED PE NORMAL - Vitals Vital signs reviewed: Yes - General General: Alert and oriented X 3, No acute distress, Well developed/nourished - Derm Derm: Normal color, Warm and dry, Other (umbilical area with rounded area of purplish color but redness surrounding, about 1/2 cm diamaeter with some fluctuance. Bedside US showed inflammation in the tissue there, with fluid 1.3 cm or so below the area (c/w US a month ago).) Results - Vitals Vitals: Oxygen O2 Source Room air - Labs Labs: Microbiology 12/06/23 09:02 Wound Culture - Preliminary Abdomen PD Medical Decision Making - ED course Complexity details: considered differential (there is tender and red/swelling at umbilical area, with recent US eval showing fluid collection underneath with some vascularity. SO I do not want to I&D the area, but did get culture of faint fluid at the raised area of inflammation/granulation. Presume infection now but of soft tissue.), d/w patient Departure - Departure Disposition: 01 Home, Self Care Clinical Impression: Infected umbilical granuloma Condition: Stable Record reviewed to determine appropriate education?: Yes Follow-Up: yRann Brock MD [Primary Care Provider] - [facility] [Provider Group] Prescriptions: Mupirocin 2% Oint [Bactroban 2% Oint] 1 applic TOP TID #15 gm Doxycycline Hyclate 100 mg PO BID 7 Days #14 cap Ibuprofen [Motrin] 600 mg PO TID PRN #25 tab PRN Reason: Pain Comments: The ultrasound report from a month ago showed a small collection of fluid that did have some vascular flow around would look like a prior stitch or clip from the umbilical hernia repair. The stitch a clip would be natural to be there subsequent to the surgery. They can get irritated or inflamed around it and have some healing scar tissue (granuloma). Typically would leave those alone as long as they do not bother you. However at this point it looks likely that it is infected. I did not see a larger fluid collection per se but some inflammation and fluid around the tissue near the surface. As such we are treated with antibiotics topically and orally. You can use some anti-inflammatories as well. I sent these to prescriptions to the [facility] in [place]. I would assume the redness and swelling will decrease over the next few days more back to normal of what it was prior. However I would subsequently follow- up with the surgery office again. Since that did get infected, if that changes the game plan for any local surgical treatment. Recheck if not improving well over the next few days. We did do a culture of the area which should result in a couple of days and we will call if we need to change the antibiotic choice based on it. Forms: PCP List Discharge Date/Time: 12/06/23 09:20
[2023-12-06 08:42] VITALS: O2SAT 98
[2023-12-06] MEDS: IBUPROFEN 600 MG TABLET PO STA (09:12)
[2023-12-06] MEDS: MUPIROCIN 2% OINT 1 GM TOP STA (09:13)
[2023-12-06] MEDS: DOXYCYCLINE 100 MG TABLET PO STA (09:13)
[2023-12-06 09:23] VITALS: BP 138/90
== END 2023-12-06 09:20 | disposition home or self-care (01) ==
LOC: ED 08:26
DX: L92.8 Other granulomatous disorders of the skin and subcutaneous tissue (principal)
CPT/HCPCS: 87070; 87077; 87181; 87205; 99283; A9270

== ENCOUNTER 2023-12-10 17:00 | Emergency (ER) | payer MEDICAID ==
[2023-12-10 17:20] VITALS: BP 147/63; O2SAT 97
--- NOTE | 2023-12-10 17:35 | ED Physician Documentation ---
PD HPI ABD PAIN - Stated complaint Stated Complaint: ABD PX - Chief complaint Chief Complaint: Abd Pain - Additional information Additional information: 33-year-old male presents emergency department for abnormal lump on his bellybutton. Patient says that he had umbilical hernia repair in May of this year at a hospital in [place] he does not report the name of the surgeon. Patient has been seen by a local surgeon here for evaluation of this lump and they at that point in time said that there is no intervention that is warranted. He recently also had an ultrasound complete of this lump which showed concerns of cystic hypoechoic focus with vascular flow. Patient says since he has had this ultrasound done since he seen his surgeon last and since he has been to the ER last it has gotten larger and he says that the lump has punctured through the scar now and it appears quite different than what it used to be. It is not painful there is no redness or swelling or erythema to the area there is no malodorous discharge no purulent drainage. PD PAST MEDICAL HISTORY - Past Medical History Cardiovascular: Hypertension Respiratory: None Neuro: None Endocrine/Autoimmune: None GI: Other : None HEENT: None Psych: Bipolar disorder Musculoskeletal: None Derm: None - Past Surgical History Past Surgical History: Yes - Present Medications Home Medications: Ambulatory Orders Medication Instructions Recorded Confirmed Adalimumab [Humira(Cf) Pen] 40 units SUBQ Q14D 12/06/23 12/06/23 Doxycycline Hyclate 100 mg PO BID 7 Days #14 cap 12/06/23 Ibuprofen [Motrin] 600 mg PO TID PRN #25 tab 12/06/23 Mupirocin 2% Oint [Bactroban 2% 1 applic TOP TID #15 gm 12/06/23 Oint] - Allergies Allergies/Adverse Reactions: Allergies Allergy/AdvReac Type Severity Reaction Status Date / Time amoxicillin [Amoxicillin] Allergy Intermediate Hives Verified 12/10/23 17:11 - Social History Does the pt smoke?: No Smoking Status: Never smoker Does the pt drink ETOH?: Yes Does the pt have substance abuse?: No - Immunizations Immunizations are current?: Yes - POLST Patient has POLST: No PD ED PE NORMAL - Vitals Vital signs reviewed: Yes - General General: Alert and oriented X 3, No acute distress, Well developed/nourished - Abdomen Abdomen: Normal bowel sounds, Soft, Non tender, Non distended, No organomegaly, Other (Superior umbilical scar appears to have dehisced with about a 1 cm bulge of pink soft tissue no purulent drainage no erythema surrounding this region.) Results - Vitals Vitals: Vital Signs - 24 hr 12/10/23 17:11 Temperature 36.8 C Heart Rate 98 Respiratory 18 Rate Blood Pressure 147/63 H O2 Saturation 97 Oxygen O2 Source Room air PD Medical Decision Making - ED course ED course: 33-year-old male presents emergency department for concerns of abnormal bump to his umbilical hernia scar. The scar appears to have almost opened up or dehisced with pink tissue. On-call surgeon Dr. Jesus was graciously willing enough to come and evaluate the patient at bedside and said that this could be a pyogenic cyst versus dehiscence of the scar either way it needs to be operated on. Referral was made for the patient to follow-up with Dr. Chambers outpatient for surgery and given that patient has no pain there is no erythema or swelling to the area no antibiotics are warranted no pain meds warranted. All questions answered repair precautions given patient safe for discharge. Departure - Departure Disposition: 01 Home, Self Care Clinical Impression: Pyogenic granuloma Instructions: ED Granuloma Pyogenic Follow-Up: Elinor Chambers, DO [Provider Admit Priv/Credential] - Comments: Thank you for trusting us with your care, we have evaluated you for the wound around your belly button. Please follow up with surgery outpatient and they will arrange a time with you have this operated on and fixed. Forms: PCP List Discharge Date/Time: 12/10/23 18:02
== END 2023-12-10 18:02 | disposition home or self-care (01) ==
LOC: ED 17:00
DX: L98.0 Pyogenic granuloma (principal); I10 Essential (primary) hypertension; Z79.899 Other long term (current) drug therapy
CPT/HCPCS: 99282; 99283